=== PATIENT | male | born 1985 | race Caucasian/White ===

== ENCOUNTER 2017-12-10 15:23 | Emergency (ER) | payer OTHER ==
[~2017-12-10] VITALS: Ht 172.7 cm; Wt 61.2 kg
[~2017-12-10 15:23] MED LIST: ACEBUTCAFT PO; ALBU90I INH; ALBU90OI INH; Augmentin 875-1 EACH PO; CEPH500 PO; CETYLOZ PO; CYCL10 PO; DIPATR PO; DOXY100 PO; HYDACE5 PO; HYDPAM50 PO; IBUP600 PO; IBUP800 PO; KETO10 PO; MECL25 PO; METO10 PO; METPRE4DP PO; Mobic15 MG PO; NAPR375 PO; NAPR500 PO; Norco 5-325 Ta1 EACH PO; OMEP20ER; ONDA4 PO; OXYACE5T PO; PENVK500 PO; PRED10 PO; PRED20 PO; PRODEXEL PO; PROM25 PO; Pepcid20 MG PO; RANI150 PO; RXONDA4ODT MM; TRAM50 PO; Ultram50 MG PO; Veetids 500500 MG PO; Ventolin/Prove6.7 GM INH; Zithromax250 MG PO
[2018-06-16] MEDS ORDERED: ONDA8 PO (09:35)
[2018-06-16] MEDS ORDERED: PANT40 PO (09:36)
== END 2017-12-10 16:03 | disposition home or self-care (01) ==
LOC: ER 15:23
DX: J06.9 Acute upper respiratory infection, unspecified (principal); Z87.891 Personal history of nicotine dependence; Z88.1 Allergy status to other antibiotic agents; Z88.2 Allergy status to sulfonamides; Z90.89 Acquired absence of other organs
CPT/HCPCS: 99282

== ENCOUNTER 2018-06-22 13:43 | Day surgery (SDC) | payer OTHER ==
[~2018-06-22] VITALS: Ht 172.7 cm; Wt 62.8 kg
[~2018-06-22 13:43] MED LIST changes: +ONDA8 PO; +PANT40 PO
== END 2018-06-22 16:52 | disposition home or self-care (01) ==
LOC: ORSCSDS 13:43
PROVIDERS: Student in an Organized Health Care Education/Training Program
PROC: 0DB88ZX Excision of Small Intestine, Via Natural or Artificial Opening Endoscopic, Diagnostic (ICD-10-PCS; principal; 2018-06-22 14:45)
PROC: 0DB68ZX Excision of Stomach, Via Natural or Artificial Opening Endoscopic, Diagnostic (ICD-10-PCS; principal; 2018-06-22 14:45)
DX: R10.12 Left upper quadrant pain (principal); K21.9 Gastro-esophageal reflux disease without esophagitis; K29.70 Gastritis, unspecified, without bleeding; G47.33 Obstructive sleep apnea (adult) (pediatric); F43.10 Post-traumatic stress disorder, unspecified; F41.8 Other specified anxiety disorders; F20.9 Schizophrenia, unspecified; F17.210 Nicotine dependence, cigarettes, uncomplicated; F90.9 Attention-deficit hyperactivity disorder, unspecified type; Z79.899 Other long term (current) drug therapy
CPT/HCPCS: J2250; J7120

== ENCOUNTER 2019-07-25 06:20 | Emergency (ER) | payer MEDICAID ==
[~2019-07-25] VITALS: Ht 172.7 cm; Wt 63.5 kg
[~2019-07-25 06:20] MED LIST changes: +HYOS.125 SL; +ONDA4ODT MM; +Zantac150 MG
[2019-07-25] MEDS ORDERED: PSEU120ER PO (06:39)
[2019-07-25] MEDS ORDERED: ONDA4ODT MM (06:39)
[2019-07-25] MEDS ORDERED: OXYM.05NI (06:39)
== END 2019-07-25 06:49 | disposition home or self-care (01) ==
LOC: ER 06:20
DX: J06.9 Acute upper respiratory infection, unspecified (principal); Z88.1 Allergy status to other antibiotic agents; Z88.2 Allergy status to sulfonamides; Z79.899 Other long term (current) drug therapy; F41.9 Anxiety disorder, unspecified; F43.10 Post-traumatic stress disorder, unspecified; Z87.891 Personal history of nicotine dependence
CPT/HCPCS: 99283

== ENCOUNTER 2020-03-27 05:08 | Emergency (ER) | payer SELFPAY ==
[~2020-03-27] VITALS: Ht 172.7 cm; Wt 63.5 kg
[~2020-03-27 05:08] MED LIST changes: +OXYM.05NI; +PSEU120ER PO
[2020-03-27 06:17] LABS: BASOPHILS ABSOLUTE AUTO 0.04 K/mm3 (0.00-0.23); BASOPHILS PERCENT AUTO 1 % (0-2); EOSINOPHILS PERCENT AUTO 2 % (0-6); Hematocrit 42.9 % (37.0-53.0); Hemoglobin 14.7 g/dL (13.5-17.5); IMMATURE GRAN ABSOLUTE AUTO 0.01 K/mm3 (0.00-0.10); IMMATURE GRAN PERCENT AUTO 0 % (0-1); LYMPHOCYTES ABSOLUTE AUTO 1.75 K/mm3 (0.84-5.20); LYMPHOCYTES PERCENT AUTO 28 % (21-46); MONOCYTES ABSOLUTE AUTO 0.51 K/mm3 (0.16-1.47); MONOCYTES PERCENT AUTO 8 % (4-13); Mean Corpuscular HGB 29.2 pg (26.0-34.0); Mean Corpuscular HGB Conc 34.3 g/dL (31.5-36.5); Mean Corpuscular Volume 85 fL (80-100); Mean Platelet Volume 9.9 fL (9.1-12.4); NEUTROPHILS ABSOLUTE AUTO 3.83 K/mm3 (1.96-9.15); NEUTROPHILS PERCENT AUTO 61 % (41-73); Platelet Count 270 K/mm3 (150-400); RDW Coefficient Variation 12.3 % (11.7-14.2); RDW Standard Deviation 38.3 fL (35.1-46.3); Red Blood Cell Count 5.03 M/mm3 (4.30-5.90); White Blood Cell Count 6.24 K/mm3 (4.00-11.30)
[2020-03-27 06:30] LABS: Alanine Aminotransfer (ALT/SGP 23 U/L (12-78); Albumin, Blood 3.7 g/dL (3.4-5.0); Albumin/Globulin Ratio 1.1 (0.8-1.8); Alk Phos 75 U/L (50-136); Anion Gap 1 mmol/L (6-16); Aspartate Aminotrans (AST/SGOT 26 U/L (12-37); Bilirubin, Total 0.3 mg/dL (0.1-1.0); Blood Urea Nitrogen 23 mg/dL (8-24); Bun/Creatinine Ratio 24.8 (12.0-20.0); CO2, Blood 30 mmol/L (21-32); Calcium, Blood 8.9 mg/dL (8.5-10.1); Chloride, Blood 107 mmol/L (98-108); Creatinine, Blood 0.93 mg/dL (0.60-1.20); Globulin, Blood 3.5 g/dL (2.2-4.0); Glomerular Filtration Rate >60 (60-); Glucose, Blood 98 mg/dL (70-99); Potassium, Blood 3.9 mmol/L (3.5-5.5); Sodium, Blood 138 mmol/L (136-145); Total Protein, Blood 7.2 g/dL (6.4-8.2)
[2020-03-27] MEDS ORDERED: DICY20 PO (07:35)
[2020-03-27] MEDS ORDERED: PROM25 PO (07:35)
== END 2020-03-27 07:46 | disposition home or self-care (01) ==
LOC: ER 05:08
PROVIDERS: Emergency Medicine
DX: R10.9 Unspecified abdominal pain (principal); R11.2 Nausea with vomiting, unspecified; F17.200 Nicotine dependence, unspecified, uncomplicated; Z88.2 Allergy status to sulfonamides; Z88.8 Allergy status to other drugs, medicaments and biological substances
CPT/HCPCS: 80053; 83690; 85025; 96360; 99283-25; J7120

== ENCOUNTER 2020-10-21 17:51 | Emergency (ER) | payer SELFPAY ==
[~2020-10-21] VITALS: Ht 172.7 cm; Wt 65.8 kg
[~2020-10-21 17:51] MED LIST changes: +DICY20 PO
== END 2020-10-21 19:48 | disposition home or self-care (01) ==
LOC: ER 17:51
DX: S63.501A Unspecified sprain of right wrist, initial encounter (principal); F17.200 Nicotine dependence, unspecified, uncomplicated; Z88.1 Allergy status to other antibiotic agents; Z88.2 Allergy status to sulfonamides; X58.XXXA Exposure to other specified factors, initial encounter
CPT/HCPCS: 73130; 99283-25

== ENCOUNTER 2021-01-01 07:48 | Emergency (ER) | payer SELFPAY ==
[~2021-01-01] VITALS: Ht 172.7 cm; Wt 65.8 kg
[2021-01-01] MEDS ORDERED: META800 PO (08:53)
[2021-01-01] MEDS ORDERED: Voltaren100 GM TOP (08:53)
== END 2021-01-01 09:29 | disposition home or self-care (01) ==
LOC: ER 07:48
DX: M54.5 Low back pain (principal); Z88.1 Allergy status to other antibiotic agents; Z88.2 Allergy status to sulfonamides
CPT/HCPCS: 99283